=== PATIENT | female | born 1990 | race Two or more races ===

== ENCOUNTER 2024-07-20 13:35 | Inpatient (IN) | payer MEDICAID, OTHER ==
[~2024-07-20] VITALS: Ht 165.1 cm; Wt 88.8 kg
--- NOTE | 2024-07-20 13:41 | ED.PDOC ---
History of Present Illness HPI Comments 34 year old female VIVEK presents to the ED with chief complaint of chest pain/hypotension. Patient reports that after she had donated plasma earlier today, she begun to experience 10/10 chest pain with associated body pain, nausea, and vomiting. EMS relays that on scene the patient was hypotensive. Patient denies any SOB, dizziness, fever, chills, headache, or abdominal pain. Time Seen by MD: 13:38 Reviewed Notes: Nurses Notes, Balance Wheel Screw Hole Tapper Notes, Medications, Allergies Allergies: Coded Allergies: NO KNOWN ALLERGIES (Unverified , 07/20/24) Information Source: Patient, Emergency Med Personnel Mode of Arrival: EMS Severity: Moderate Timing: Hours Duration: Since onset Prehospital treatment: None Past Medical History PAST MEDICAL HISTORY: Denies Surgical History: Denies all surgeries COSTUME TECHNICIAN History: No Pertinent COSTUME TECHNICIAN History Family History Family History: Reviewed,noncontributory to illness Social History Smoker: Non-Smoker Alcohol: Denies ETOH Use Drugs: Denies Drug Use Lives In: Home Constitutional: reports: malaise; denies: chills, diaphoresis, fatigue, fever, sweats, weakness, others EENTM: denies: blurred vision, double vision, ear bleeding, ear discharge, ear drainage, ear pain, ear ringing, eye pain, eye redness, hearing loss, mouth pain, mouth swelling, nasal discharge, nose bleeding, nose congestion, nose pain, photophobia, tearing, throat pain, throat swelling, voice changes, others Respiratory: denies: cough, hemoptysis, orthopnea, SOB at rest, shortness of breath, SOB with excertion, stridor, wheezing, others Cardiovascular: reports: chest pain; denies: dizzy spells, diaphoresis, Dyspnea on exertion, edema, irregular heart beat, left arm pain, lightheadedness, palpitations, PND, syncope, others Gastrointestinal: reports: nausea, vomiting; denies: abdomen distended, abdominal pain, blood streaked bowels, constipated, diarrhea, dysphagia, d ifficulty swallowing, hematemesis, melena, poor appetite, poor fluid intake, rectal bleeding, rectal pain, others Genitourinary: denies: abnormal vagina bleeding, burning, dyspareunia, dysuria, flank pain, frequency, hematuria, incontinence, pain, , vagina discharge, urgency, others Neurological: denies: dizziness, fainting, headache, left sided numbness, left sided weakness, numbness, paresthesia, pre-existing deficit, right sided numbness, right sided weakness, seizure, speech problems, tingling, tremors, weakness, others Musculoskeletal: denies: back pain, gout, joint pain, joint swelling, muscle pain, muscle stiffness, neck pain, others Integumetry: denies: bruises, change in color, change in hair/nails, dryness, laceration, lesions, lumps, rash, wounds, others Allergic/Immunocompromised: denies: Difficulty Healing, Frequent Infections, Hives, Itching, others Hematologic/Lymphatic: denies: anemia, blood clots, easy bleeding, easy bruising, swollen glands, others Endocrine: denies: excessive hunger, excessive sweating, excessive thirst, excessive urination, flushing, intolerance to cold, intolerance to heat, unexplained weight gain, unexplained weight loss, others Psychiatric: denies: anxiety, bipolar disorder, depression, hopeless, panic disorder, schizophrenia, sleepless, suicidal, others All Other Systems: Reviewed and Negative Physical Exam General Appearance: Normal, Severe Distress HEENT: Normal ENT Inspection, PERRL/EOMI Neck: Full Range of Motion, Non-Tender, Normal, Normal Inspection Respiratory: Chest Non-Tender, Lungs Clear, No Accessory Muscle Use, No Respiratory Distress, Normal Breath Sounds Cardiovascular: No Edema, No JVD, No Murmur, No Gallop, Normal Peripheral Pulses, Tachycardia Breast Exam: Deferred Gastrointestinal: No Organomegaly, Non Tender, No Pulsatile Mass, Normal Bowel Sounds, Soft Genitalia: Deferred Pelvic: Deferred Rectal: Deferred Extremities: No calf tenderness, Normal capillary refill, Normal inspection, Normal range of motion, Non-tender, No pedal edema Musculoskeletal : Apperance: Normal Neurologic: Alert, elementary educator II-XII nml as Tested, No Motor Deficits, Normal Affect, Normal Mood, No Sensory Deficits Cerebellar Function: Normal Reflexes: Normal Skin: Dry, Normal Color, Warm Lymphatic: No Adenopathy Was a procedure done? Was a procedure done?: No EKG EKG : Pulse Rate (adult): 58 [place]: Normal Cardiac Rhythm: NSR Block: None Hypertrophy: None ST: Normal Comments Early repolarization Differential Dx Considerations may include: Electrolyte abnormalities, allergic reaction, ACS, fluid shift syndrome X-Ray, Labs, Meds, VS Vital Signs Date Time Temp Pulse Resp B/P (MAP) Pulse Ox O2 Delivery O2 Flow Rate FiO2 07/20/24 16:00 77 16 112/49 (70) 97 07/20/24 15:15 71 13 97/50 (66) 98 07/20/24 14:00 61 20 100 Room Air* 0 21 07/20/24 14:00 62 12 85/60 (68) 100 07/20/24 13:49 58 07/20/24 13:47 58 07/20/24 13:35 97.7 74 20 63/38 (46) 99 Lab Test 07/20/24 16:05 07/20/24 15:41 07/20/24 15:00 07/20/24 13:50 Range/Units Troponin I High Sensitivity 5 5 4 </=34 ng/L Urine Color Colorless Yellow Urine Clarity Clear Clear Urine pH 7.0 5.0-9.0 Urine Specific Page 1.006 1.001-1.035 Urine Protein Negative Negative Urine Ketones Negative Negative Urine Blood 2+ H Negative /uL Urine Nitrite Negative Negative Urine Bilirubin Negative Negative Urine Urobilinogen Normal Negative mg/dL Urine Leukocyte Esterase Trace Negative /uL Urine RBC 2 0 - 4 /hpf Urine WBC 2 0 - 5 /hpf Urine Squamous Epithelial Cells Few <5 /hpf Urine Amorphous Crystals Few None Seen /hpf Urine Bacteria Few H None Seen /hpf Urine Glucose Normal Normal mg/dL Sodium Level 141 136-145 mmol/L Potassium Level 3.8 3.5-5.1 mmol/L Chloride Level 110 H 98-107 mmol/L Carbon Dioxide Level 24 20-31 mmol/L Anion Gap 7 5-15 Blood Urea Nitrogen 6 L 9-23 mg/dL Creatinine 0.62 0.550-1.02 mg/dL Glomerular Filtration Rate Calc 119 >90 mL/min BUN/Creatinine Ratio 9.7 L 10.0-20.0 Serum Glucose 115 H 74-106 mg/dL Calcium Level 7.0 L 8.7-10.4 mg/dL Total Bilirubin 0.4 0.2-1.0 mg/dL Aspartate Amino Transferase (AST) 11 L 13-40 U/L Alanine Aminotransferase (ALT) 12 7-40 U/L Alkaline Phosphatase 51 46-116 U/L Total Protein 5.2 L 5.7-8.2 g/dL Albumin 3.2 3.2-4.8 g/dL Lipase 42 12-53 U/L White Blood Count 10.2 4.4-10.8 10^3/uL Red Blood Count 5.01 4.0-5.20 10^6/uL Hemoglobin 15.4 12.2-16.2 g/dL Hematocrit 46.7 H 36.0-46.0 % Mean Corpuscular Volume 93.1 80.0-100.0 fL Mean Corpuscular Hemoglobin 30.7 28.0-32.0 pg Mean Corpuscular Hemoglobin Concent 33.0 32.0-36.0 g/dL Red Cell Distribution Width 14.1 11.8-14.3 % Platelet Count 399 140-450 10^3/uL Mean Platelet Volume 8.4 6.9-10.8 fL Neutrophils (%) (Auto) 50.5 37.0-80.0 % Lymphocytes (%) (Auto) 38.1 10.0-50.0 % Monocytes (%) (Auto) 9.0 0.0-12.0 % Eosinophils (%) (Auto) 2.0 0.0-7.0 % Basophils (%) (Auto) 0.4 0.0-2.0 % Neutrophils # (Auto) 5.2 1.6-8.6 10 ^3/uL Lymphocytes # (Auto) 3.9 0.4-5.4 10 ^3/uL Monocytes # (Auto) 0.9 0-1.3 10 ^3/uL Eosinophils # (Auto) 0.2 0-0.8 10 ^3/uL Basophils # (Auto) 0 0-0.2 10 ^3/uL Nucleated Red Blood Cells 0.1 % B-Type Natriuretic Peptide 18.66 0-100 pg/mL Beta HCG, Quantitative 0.3 L 1.5-4.2 mIU/mL Current Medications Medications (Trade) Dose Ordered Sig/Yemi Route Start Time Stop Time Status Last Admin Sodium Chloride 1,000 ml @ 1,000 mls/hr Q1H ONCE IV 07/20/24 13:45 07/20/24 14:44 DC 07/20/24 14:06 Sodium Chloride 2,000 ml @ 1,000 mls/hr Q2H ONCE IV 07/20/24 14:30 07/20/24 16:29 DC 07/20/24 14:27 Chest XR: FINDINGS: Lines and Tubes: None Lungs: No focal consolidation. Pleura: No effusion. No pneumothorax. Cardiomediastinal contours: Unremarkable Bones: No acute osseous abnormality. IMPRESSION: No acute cardiopulmonary disease. Images Reviewed?: Images reviewed and evaluated by me Time of 1ST Reevaluation: 14:38 Reevaluation 1ST: Unchanged Patient Education/Counseling: Diagnosis, Treatment Family Education/Counseling: No Family Present Departure 1 Departure Time of Disposition: 18:23 (Patient presented with chest pain that was concerning for possible STEMI, ACS, PE, Pneumonia, Muscle Strain, COPD, Dissection. Data: 1. I ordered and reviewed the result of at least 3 labs including a CBC, BMP, and Troponin. 2. I independently interpreted the following tests: EKG which shows sinus arrhythmia and Chest X-ray which shows benign chest.Risk:This patient has a high risk of morbidity due to further diagnostic testing or treatment and may suffer from an acute cardiac or respiratory disorder. Workup reveals concern for ACS and patient should be admitted for further workup and possible expert consultation. ) Impression: Primary Impression: Acute chest pain Additional Impression: Hypotension Qualified Codes: I95.9 - Hypotension, unspecified Disposition: 09 ADMITTED INPATIENT Admit to: Med Surg Condition: Guarded Critical Care Note Critical Care Time?: Yes Critical care comment: Acute chest pain Authorized and Performed by: Dorys Wheeler MD Total critical care time: Approximately 44 minutes Due to a high probability of clinically significant, life threatening deterioration, the patient required my highest level of preparedness to intervene emergently and I personally spent this critical care time directly and personally managing the patient. This critical care time included obtaining a history; examining the patient; pulse oximetry; ordering and review of studies; arranging urgent treatment with development of a management plan; evaluation of patient's response to treatment; frequent reassessment; and, discussions with other providers. This critical care time was performed to assess and manage the high probability of imminent, life-threatening deterioration that could result in multi-organ failure. It was exclusive of separately billable procedures and treating other patients and teaching time. Please see my other sections and the rest of the note for further information on patient assessment and treatment. Stability Stability form required: No Heart Score Heart Score: Heart Score Response (Comments) Value History N/A 0 EKG N/A 0 Age N/A 0 Risk Factors N/A 0 Troponin N/A 0 Total 0 I personally scribed for DORYS WHEELER MD ([email or web address]) on 07/20/24 at 13:41. Electronically submitted by Dar Boothe ([email or web address]). I personally scribed for DORYS WHEELER MD ([email or web address]) on 07/20/24 at 13:49. Electronically submitted by Dar Boothe ([email or web address]). I personally scribed for DORYS WHEELER MD ([email or web address]) on 07/20/24 at 14:24. Electronically submitted by Dar Boothe ([email or web address]). DORYS WHEELER MD Jul 20, 2024 13:41
[2024-07-20] MEDS: ONDANSETRON HCL 4 MG/2 ML VIAL IV ONE (13:45)
[2024-07-20] MEDS: MORPHINE SULFATE 4 MG/ML SYR/VIAL IV ONE (13:45)
[2024-07-20 14:00] VITALS: PULSE 61; RESP 20; O2SAT 100
[2024-07-20] MEDS: SODIUM CHLORIDE 0.9% 1,000 ML IV ONE ×2 (14:06→19:06)
[2024-07-20 14:09] LABS: Basophils # (auto) 0 10 ^3/uL (0-0.2); Basophils % (auto) 0.4 % (0.0-2.0); Eosinophils # (auto) 0.2 10 ^3/uL (0-0.8); Hematocrit 46.7 % (36.0-46.0); Hemoglobin 15.4 g/dL (12.2-16.2); Lymphocytes # (auto) 3.9 10 ^3/uL (0.4-5.4); Lymphocytes % (auto) 38.1 % (10.0-50.0); Mean Corpuscular Hemoglobin 30.7 pg (28.0-32.0); Mean Corpuscular Volume 93.1 fL (80.0-100.0); Monocytes # (auto) 0.9 10 ^3/uL (0-1.3); Neutrophils # (auto) 5.2 10 ^3/uL (1.6-8.6); Neutrophils % (auto) 50.5 % (37.0-80.0); Nucleated Red Blood Cells % 0.1 %; Platelet Count (auto) 399 10^3/uL (140-450); Red Blood Cells 5.01 10^6/uL (4.0-5.20); Red Cell Distribution Width 14.1 % (11.8-14.3); White Blood Cell 10.2 10^3/uL (4.4-10.8)
--- NOTE | 2024-07-20 14:15 | DVH ---
CHEST RADIOGRAPH Indication:chest pain Technique: Single frontal view of the chest was obtained Comparison: None FINDINGS: Lines and Tubes: None Lungs: No focal consolidation. Pleura: No effusion. No pneumothorax. Cardiomediastinal contours: Unremarkable Bones: No acute osseous abnormality. IMPRESSION: No acute cardiopulmonary disease.
[2024-07-20] MEDS: SODIUM CHLORIDE 0.9% 2,000 ML IV ONE (14:27)
[2024-07-20 15:48] LABS: Alanine Aminotransferase 12 U/L (7-40); Albumin 3.2 g/dL (3.2-4.8); Alkaline Phosphatase 51 U/L (46-116); Anion Gap 7 (5-15); Aspartate Aminotransferase 11 U/L (13-40); BUN/Creatinine Ratio 9.7 (10.0-20.0); Bilirubin, Total 0.4 mg/dL (0.2-1.0); Blood Urea Nitrogen 6 mg/dL (9-23); Carbon Dioxide 24 mmol/L (20-31); Chloride 110 mmol/L (98-107); Glucose 115 mg/dL (74-106); Lipase 42 U/L (12-53); Potassium 3.8 mmol/L (3.5-5.1); Sodium 141 mmol/L (136-145); Total Protein 5.2 g/dL (5.7-8.2)
[2024-07-20 16:12] LABS: Urine Amorphous Crystal FEW /hpf (None Seen); Urine Bacteria FEW /hpf (None Seen); Urine Blood 2+ /uL (Negative); Urine Clarity Clear (Clear); Urine Color Colorless (Yellow); Urine Protein, UAD Negative (Negative); Urine Specific Gravity 1.006 (1.001-1.035); Urine Urobilinogen Normal (Negative); Urine WBC 2 /hpf (0 - 5)
[2024-07-20 19:20] VITALS: PULSE 50; RESP 18; O2SAT 100
[2024-07-20] MEDS ORDERED: ONDANSETRON HCL 4 MG/2 ML VIAL IV PRN (21:45)
[2024-07-20] MEDS: SODIUM CHLORIDE 0.9% 1,000 ML IV SCH (21:45)
[2024-07-20] MEDS ORDERED: MORPHINE SULFATE INJ 2 MG/ml SYRG IV PRN (21:45)
[2024-07-20] MEDS ORDERED: ACETAMINOPHEN 325 MG TAB PO PRN (21:45)
[2024-07-20] MEDS ORDERED: NITROGLYCERIN 0.4 MG SL TAB SL PRN (21:45)
[2024-07-20] MEDS ORDERED: HYDROcodone-ACET 5/325MG TAB PO PRN (21:45)
--- NOTE | 2024-07-20 22:13 | DVHHPRES ---
History of Present Illness Resident Creating Document: CONCHITA REES RESIDENT History of Present Illness This is a 34 years old female with no significant past medical history presented to the ED via EMS with a complaint of dizziness and fainting. Patient reports that after she had donated plasma earlier today, she began to experience numbness in the lips , heaviness in the lower parts of the body , blackout and lost consciousness. This is the 3rd time she donated plasma and she used to have numbness in the lips after donation and it is the 1st time she have this kind of symptoms. She also mentioned nausea and vomiting but denies any incontinence or confusion after regained consciousness. EMS relays that on scene the patient was hypotensive. Patient denies any SOB, dizziness, fever, chills, headache, or abdominal pain. Past Medical History None Past Surgical History: None Family History: None Smoke: No ALCOHOL: none Drugs: None Lives: with Family Review of Systems Constitutional: No: Fever, Chills, Sweats, Weakness, Malaise, Other Eyes: No: Pain, Vision change, Conjunctivae inflammation, Eyelid inflammation, Other, Redness ENT: No: Ear pain, Ear discharge, Nose pain, Nose discharge, Nose congestion, Mouth pain, Mouth swelling, Throat pain, Throat swelling, Other Respiratory: No: Cough, Dry, Shortness of breath, SOB with excertion, Wheezing, Hemoptysis, Pleuritic Pain, Sputum, Wheezing, Other Cardiovascular: Lt Headedness; No: Chest Pain, Palpitations, Orthopnea, Paroxysmal Noc. Dyspnea, Edema, Other Gastrointestinal: Nausea, Vomiting; No: Abdominal Pain, Diarrhea, Constipation, Melena, Hematochezia, Other Genitourinary: No Dysuria, No Frequency, No Incontinence, No Hematuria, No Retention, No Other Musculoskeletal: No: other, neck pain, shoulder pain, arm pain, back pain, hand pain, leg pain, foot pain Skin: No: Rash, Lesions, Jaundice, Bruising, Other Neurological: No: Weakness, Numbness, Incoordination, Change in speech, Confusion, Seizures, Other Allergies: Coded Allergies: NO KNOWN ALLERGIES (Unverified , 07/20/24) Medications Current Medications Medications Dose Ordered Sig/Yemi Route Start Time Stop Time Status Last Admin Dose Admin Sodium Chloride 1,000 ml @ 75 mls/hr [id number] IV 07/20/24 21:45 Acetaminophen 325 mg Q4HP PRN PO 07/20/24 21:45 Acetaminophen/ Hydrocodone Bitart 1 tab Q4HP PRN PO 07/20/24 21:45 Ondansetron HCl 4 mg Q4HP PRN IV 07/20/24 21:45 Nitroglycerin 0.4 mg Q5MINP PRN SL 07/20/24 21:45 Morphine Sulfate 2 mg Q30M PRN IV 07/20/24 21:45 Exam Vital Signs Vital Signs Date Time Temp Pulse Resp B/P (MAP) Pulse Ox O2 Delivery O2 Flow Rate FiO2 07/20/24 20:00 51 07/20/24 19:04 8 91/51 (64) 98 07/20/24 14:00 Room Air* 0 21 07/20/24 13:35 97.7 General Appearance: Alert, Oriented X3, Cooperative, mild distress HEENT: Atraumatic, PERRLA, EOMI, Mucous membr. moist/pink Respiratory: Clear to auscultation, Normal air movement Cardiovascular: Regular rate, Normal S1, Normal S2, No murmurs Abdominal: Normal bowel sounds, Soft, No tenderness, No hepatospenomegaly, No masses Extremities: No clubbing, No cyanosis, No edema, Normal pulses, No tenderness/swelling Skin: No rashes, No breakdown, No significant lesion Neuro: Normal gait, Normal speech, Strength at 5/5 X4 ext, Normal tone, Sensation intact Psych/Mental Status: Mental status NL, Mood NL Labs/Xrays Labs Test 07/20/24 16:05 07/20/24 15:41 07/20/24 15:00 07/20/24 13:50 Range/Units Troponin I High Sensitivity 5 </=34 ng/L Urine Color Colorless Yellow Urine Clarity Clear Clear Urine pH 7.0 5.0-9.0 Urine Specific [place] 1.006 1.001-1.035 Urine Protein Negative Negative Urine Ketones Negative Negative Urine Blood 2+ H Negative /uL Urine Nitrite Negative Negative Urine Bilirubin Negative Negative Urine Urobilinogen Normal Negative mg/dL Urine Leukocyte Esterase Trace Negative /uL Urine RBC 2 0 - 4 /hpf Urine WBC 2 0 - 5 /hpf Urine Squamous Epithelial Cells Few <5 /hpf Urine Amorphous Crystals Few None Seen /hpf Urine Bacteria Few H None Seen /hpf Urine Glucose Normal Normal mg/dL Sodium Level 141 136-145 mmol/L Potassium Level 3.8 3.5-5.1 mmol/L Chloride Level 110 H 98-107 mmol/L Carbon Dioxide Level 24 20-31 mmol/L Anion Gap 7 5-15 Blood Urea Nitrogen 6 L 9-23 mg/dL Creatinine 0.62 0.550-1.02 mg/dL Glomerular Filtration Rate Calc 119 >90 mL/min BUN/Creatinine Ratio 9.7 L 10.0-20.0 Serum Glucose 115 H 74-106 mg/dL Calcium Level 7.0 L 8.7-10.4 mg/dL Total Bilirubin 0.4 0.2-1.0 mg/dL Aspartate Amino Transferase (AST) 11 L 13-40 U/L Alanine Aminotransferase (ALT) 12 7-40 U/L Alkaline Phosphatase 51 46-116 U/L Total Protein 5.2 L 5.7-8.2 g/dL Albumin 3.2 3.2-4.8 g/dL Lipase 42 12-53 U/L White Blood Count 10.2 4.4-10.8 10^3/uL Red Blood Count 5.01 4.0-5.20 10^6/uL Hemoglobin 15.4 12.2-16.2 g/dL Hematocrit 46.7 H 36.0-46.0 % Mean Corpuscular Volume 93.1 80.0-100.0 fL Mean Corpuscular Hemoglobin 30.7 28.0-32.0 pg Mean Corpuscular Hemoglobin Concent 33.0 32.0-36.0 g/dL Red Cell Distribution Width 14.1 11.8-14.3 % Platelet Count 399 140-450 10^3/uL Mean Platelet Volume 8.4 6.9-10.8 fL Neutrophils (%) (Auto) 50.5 37.0-80.0 % Lymphocytes (%) (Auto) 38.1 10.0-50.0 % Monocytes (%) (Auto) 9.0 0.0-12.0 % Eosinophils (%) (Auto) 2.0 0.0-7.0 % Basophils (%) (Auto) 0.4 0.0-2.0 % Neutrophils # (Auto) 5.2 1.6-8.6 10 ^3/uL Lymphocytes # (Auto) 3.9 0.4-5.4 10 ^3/uL Monocytes # (Auto) 0.9 0-1.3 10 ^3/uL Eosinophils # (Auto) 0.2 0-0.8 10 ^3/uL Basophils # (Auto) 0 0-0.2 10 ^3/uL Nucleated Red Blood Cells 0.1 % B-Type Natriuretic Peptide 18.66 0-100 pg/mL Beta HCG, Quantitative 0.3 L 1.5-4.2 mIU/mL Assessment/Plan Assessment/Plan Assessment and plan: # Near syncopal event likely due to hypotension - Admitted the patient in telemetry - On admission blood pressure was 63/38 - IV normal saline at 100 mL/hour - Initial EKG and troponins were unremarkable - Chest xray revealed no acute cardiopulmonary disease - Ordered Echo. # Possible vasovagal syncope due to dehydration. # Vitamin-D deficiency - Vitamin-D 07365 units Q 7D Goal of care discussed with the patient for more than 17 minutes full code Plan of treatment discussed with Dr. Ashton Plan discussed with: Patient, Other My Orders Orders - CONCHITA REES RESIDENT Procedure Category Date Status Time Admit ADMIT 07/20/24 Transmitted 21:31 Allergies ANAT 07/20/24 In Process 21:31 Code Status CODE 07/20/24 Transmitted 21:31 Sodium Chloride 0.9% PHA 07/20/24 In Process 21:45 Oxygen Per Hour RT 07/20/24 Transmitted 21:31 Acetaminophen Tablet PHA 07/20/24 In Process (Tylenol Tablet) 21:45 Hydrocodone-Acet PHA 07/20/24 In Process 5/325mg Tab (Steele 21:45 Ondansetron Hcl PHA 07/20/24 In Process (Zofran) 21:45 Complete Blood Count LAB 07/21/24 Verified 04:00 Comprehensive LAB 07/21/24 Verified Metabolic Panel 04:00 Echo 2d Mode Cardiac US 07/20/24 Logged DOP 21:31 Clear Liq Diet DIET 07/21/24 Transmitted Breakfast Nitroglycerin PHA 07/20/24 In Process Sublingual (Ntrostat 21:45 Morphine Sulfate PHA 07/20/24 In Process Injection 21:45 Oxygen By Nasal RT 07/20/24 Transmitted Cannula 21:31 Stat Ekg For Chest ANAT 07/20/24 In Process Pain 21:31 Notify Of Changes ANAT 07/20/24 In Process From Base 21:31 Folder Machine Adjuster For ANAT 07/20/24 In Process 24 Hours 21:31 Emergency Dysrhythmia [facility] 07/20/24 In Process Protocol 21:31 Rhythm Strips Once [facility] 07/20/24 In Process Every Shift 21:31 Date of Service: Jul 20, 2024 Billing Provider: WARD ASHTON MD Common Visit Codes: 13375-[id number] INP/OBS CARE (HIGH) CONCHITA REES RESIDENT Jul 20, 2024 22:13 WARD ASHTON MD Jul 21, 2024 09:00
[2024-07-21] MEDS: SODIUM CHLORIDE 0.9% 1,000 ML IV SCH (03:00)
[2024-07-21 04:41] LABS: Basophils # (auto) 0 10 ^3/uL (0-0.2); Basophils % (auto) 0.5 % (0.0-2.0); Eosinophils # (auto) 0.2 10 ^3/uL (0-0.8); Eosinophils % (auto) 2.5 % (0.0-7.0); Hematocrit 41.2 % (36.0-46.0); Hemoglobin 13.5 g/dL (12.2-16.2); Lymphocytes # (auto) 2.5 10 ^3/uL (0.4-5.4); Lymphocytes % (auto) 35.5 % (10.0-50.0); Mean Corpuscular Hemoglobin 30.7 pg (28.0-32.0); Mean Corpuscular Hgb Conc. 32.8 g/dL (32.0-36.0); Mean Corpuscular Volume 93.6 fL (80.0-100.0); Monocytes # (auto) 0.7 10 ^3/uL (0-1.3); Monocytes % (auto) 10.2 % (0.0-12.0); Neutrophils # (auto) 3.6 10 ^3/uL (1.6-8.6); Neutrophils % (auto) 51.3 % (37.0-80.0); Nucleated Red Blood Cells % 0.1 %; Platelet Count (auto) 310 10^3/uL (140-450); Red Blood Cells 4.41 10^6/uL (4.0-5.20); White Blood Cell 6.9 10^3/uL (4.4-10.8)
[2024-07-21 05:02] LABS: Alanine Aminotransferase 12 U/L (7-40); Albumin 3.2 g/dL (3.2-4.8); Alkaline Phosphatase 47 U/L (46-116); Anion Gap 7 (5-15); Aspartate Aminotransferase 12 U/L (13-40); Bilirubin, Total 0.5 mg/dL (0.2-1.0); Calcium 7.9 mg/dL (8.7-10.4); Carbon Dioxide 24 mmol/L (20-31); Chloride 113 mmol/L (98-107); Glucose 84 mg/dL (74-106); Potassium 3.4 mmol/L (3.5-5.1); Sodium 144 mmol/L (136-145); Total Protein 5.4 g/dL (5.7-8.2)
[2024-07-21 05:06] LABS: BUN/Creatinine Ratio 8.3 (10.0-20.0); Blood Urea Nitrogen < 5 mg/dL (9-23)
[2024-07-21] MEDS: SOD CHL 0.45% 1,000 ML IV SCH (05:45)
--- NOTE | 2024-07-21 05:52 | ECG ---
[facility] Test Date: 2024-07-20 Test Time: 13:47:33 Pat Name: DELFINO BARFIELD Department: ER Room: 0293T Gender: F Personal Fitness Manager: CARLITA : 1990 Requested By: DORYS JAMES Order Number: [id number] Reading MD: Yosef Bowers Measurements Intervals [place] Rate: 58 P: 30 DC: 59 QRS: -23 QRSD: 106 T: 64 QT: 440 QTc: 433 Interpretive Statements Sinus rhythm Atrial premature complex Short DC interval Borderline left axis deviation ST elev, probable normal early repol pattern Baseline wander in lead(s) V1,V3 Electronically Signed On 07-22-2024 14:55:04 PDT by Yosef Bowers Please click the below link to view image of tracing.
[2024-07-21] MEDS: POTASSIUM CHL 20 Meq TABLET PO ONE (06:28)
[2024-07-21] MEDS: ERGOCALCIFEROL 50,000 UNIT(1.25MG) CAP PO SCH (06:28)
[2024-07-21 07:40] VITALS: PULSE 48; RESP 18; O2SAT 97
[2024-07-21 08:51] LABS: Triglycerides 104 mg/dL (< 150)
[2024-07-21 08:52] LABS: LDL Cholesterol 67 mg/dL (< 100)
[2024-07-21 08:53] LABS: Cholesterol 114 mg/dL (< 200); HDL Cholesterol 36 mg/dL (40-59)
--- NOTE | 2024-07-21 13:08 | DVHSR ---
APPROVED REPORT EXAM: Two-dimensional and M-mode echocardiogram with Doppler and color Doppler. Blood Pressure: 99/50 mmHg INDICATION Syncope RISK FACTORS Height: 5'5", Weight: 180 DIMENSIONS LVDd4.7 (3.8-5.7cm)LA (2D)4.4 (1.9-4.0cm)Aortic Root2.5 (2.0-3.7cm) LVDs3.1 (2.5-4.0cm)LA (MM) (1.9-4.0cm)Aortic Cusp Exc1.8 (1.5-2.0cm) EF (%) 63.0 (55-70%)Rt. Atrium4.5 (1.9-4.0cm)Asc. Aorta2.7 cm IVSd0.8 (0.7-1.1cm)RV (D)3.8 (1.8-2.4cm) PWd0.5 (0.7-1.1cm) Mitral Valve MitralMitral Stenosis E wave1.03m/sMV Mean GR.mmHg A wave0.52m/sMV Peak GR.mmHg E/A ratio2.02D MVAcm2 DECEL [id number] 1/2 [place] Aortic Valve Aortic ValveAortic Stenosis V11.25m/[place] Mean GR.4mmHg V21.39m/[place] Peak GR.8mmHg LVOT Diameter1.8 (1.8-2.4cm)Doppler AVA2.29cm2 Pulmonic Valve V20.93m/s Other Information Quality : Technically LimitedRhythm : Technically limited study due to body habitus. Conclusion Normal left ventricular size and dimension. Normal left ventricular systolic function estimated ejec tion fraction 55%. There is a grade 1 diastolic dysfunction. Normal normal right ventricular size and dimension. Normal right ventricular systolic function. Normal biatrial size and dimension. Normal aortic valve structure function. Normal mitral valve structure and function. Normal tricuspid valve structure and function. The pulmonary valve is grossly normal. No pericardial effusion.
[2024-07-21] MEDS: LORazepam 2MG/ML-1ML VIAL IV ONE (14:50)
[2024-07-21] MEDS: LORazepam 2MG/ML-1ML VIAL ONE (15:03)
--- NOTE | 2024-07-21 15:31 | DVH ---
EXAM: CT HEAD WITHOUT CONTRAST HISTORY: SZR LIKE ACTIVITY COMPARISON: None TECHNIQUE: Axial images were obtained and reformatted in coronal and sagittal planes. All CT scans at this medical facility are performed using dose modulation techniques as appropriate t o a performed exam including the following: Automated exposure control was utilized; adjustment of th e MA and/or KV according to patient size; and use of iterative reconstruction technique. CT Dose: CTDI volume is 53.33 mGy. Dose-length product is 863.9 mGy*cm FINDINGS: There is no evidence of acute intracranial hemorrhage, mass, mass effect midline shift. There is no h ydrocephalus or extra-axial fluid collection. [place]-white matter differentiation is maintained.. The visualized paranasal sinuses and mastoid air cells are clear. The calvarium is intact. IMPRESSION: 1. No acute intracranial process. HS:Y
[2024-07-21 15:55] VITALS: PULSE 59; RESP 16; O2SAT 98
[2024-07-21] MEDS ORDERED: LORazepam 2MG/ML-1ML VIAL IV PRN ×2 (16:45→23:00)
[2024-07-21] MEDS: D5W/SOD CHLO 0.9% 1,000 ML IV SCH (17:00)
--- NOTE | 2024-07-21 17:55 | DVH ---
Carotid Duplex Date: 07/21/2024 05:06 PM Clinical History: Seizure/syncope Comparison: None Technique: Duplex Doppler evaluation of the extracranial carotid and vertebral arteries including color Doppler and spectral/pulsed waveform analysis was performed. Findings: RIGHT SIDE: The peak systolic velocities are 82 cm/s in the distal CCA and 87 cm/s in the proximal ICA.The ICA/CC A ratio is less than 2. The external carotid artery is patent with peak systolic velocity of 96 cm/s proximally. There is appropriate antegrade flow in the right vertebral artery. LEFT SIDE: The peak systolic velocities are 92 cm/s in the distal CCA and 198 cm/s in the proximal ICA.. The IC A/CCA ratio is 2.2. The external carotid artery is patent with peak systolic velocity of 83 cm/s proximally. There is appropriate antegrade flow in the left vertebral artery. IMPRESSION: No hemodynamically significant stenosis noted in the right carotid system. No hemodynamically significant stenosis noted in the left carotid system. Elevated velocities within the left ICA from tortuosity with mild atherosclerotic plaque noted on the grayscale. Reference:Radiology 2003; 229:340-346
--- NOTE | 2024-07-21 18:20 | DVHPNRES ---
Progress Note Date Seen: Jul 21, 2024 Resident Creating Document: HAYLIE DESAI RESIDENT Medical Necessity Reason Pt with a Central, PICC or Fol: No Subjective Review of Systems This is a 34 years old female with no significant past medical history presented to the ED via EMS with a complaint of dizziness and fainting. Patient reports that after she had donated plasma earlier today, she began to experience numbness in the lips , heaviness in the lower parts of the body , blackout and lost consciousness. As per patient's patient's colleagues weakness patient having seizure 2 times. This is the 3rd time she donated plasma and she used to have numbness in the lips after donation and it is the 1st time she have this kind of symptoms. She also mentioned nausea and vomiting but denies any incontinence or confusion after regained consciousness. EMS relays that on scene the patient was hypotensive. Patient denies any SOB, dizziness, fever, chills, headache, or abdominal pain. Initial lab workup revealed mild hypokalemia, potassium 3.4, EKG sinus rhythm, later on patient developed sinus bradycardia at times, sent by acute cardiopulmonary process noted, CT head negative for acute intracranial hemorrhage, infarction, tumor. Carotid Doppler revealed-No hemodynamically significant stenosis noted in the right or left carotid system. PMH-none PSH- none Allergy- NKDA Personal History/ Social History- 69, denies alcoholism/smoking/drug abuse. Patient was seen today at the bedside. Patient reports feeling better. Cardiovascular- deny acute chest pain or shortness of breath or cough or palpitation Respiratory- denies cough or short of breath or wheezing Gastrointestinal- denies any rectal bleeding, nausea or vomiting Musculoskeletal-denies acute joint swelling or tenderness or redness Neurological- denies acute dysarthria, dysphagia, change in vision Psychiatry- denies depression or SI or HI Skin- denies acute rash or purpura Patient was seen today for clinical evaluation. Labs and chart reviewed. In the evening patient describes having seizure-like activity, but as per decision is questionable of the atrial seizure or nonepileptic seizure/psychogenic seizure. Patient was seen by Neurology, recommendation reviewed and appreciated, neurology recommended EEG and brain MRI. Patient on telemetry, patient was kept on NPO to avoid any seizure-related aspiration. Patient is put on IV fluid. Echo revealed LVEF 55%. Ordered cardiology consult for sinus bradycardia with a hypotension for further evaluation and care of the patient. Objective vital signs Vital Sign Date Time Temp Pulse Resp B/P (MAP) Pulse Ox O2 Delivery O2 Flow Rate FiO2 07/21/24 15:55 59 16 98 Room Air* 0 21 07/21/24 15:20 99/55 (70) 07/20/24 21:30 97.7 97.7 Total Intake and Output 07/20/24 07/20/24 07/21/24 15:00 23:00 07:00 Intake Total 4075 ml 375 ml Balance 4075 ml 375 ml medications Current Medications Medications Dose Ordered Sig/Yemi Route Start Time Stop Time Status Last Admin Dose Admin Acetaminophen 325 mg Q4HP PRN PO 07/20/24 21:45 Acetaminophen/ Hydrocodone Bitart 1 tab Q4HP PRN PO 07/20/24 21:45 Ondansetron HCl 4 mg Q4HP PRN IV 07/20/24 21:45 Nitroglycerin 0.4 mg Q5MINP PRN SL 07/20/24 21:45 Morphine Sulfate 2 mg Q30M PRN IV 07/20/24 21:45 Ergocalciferol 50,000 unit Q7D PO 07/21/24 05:45 07/21/24 06:28 50,000 UNIT Sodium Chloride 1,000 ml @ 100 mls/hr Q10H IV 07/21/24 05:45 07/21/24 16:36 100 MLS/HR Lorazepam 1 mg Q5MINP PRN IV 07/21/24 16:45 Dextrose/Sodium Chloride 1,000 ml @ 125 mls/hr Q8H IV 07/21/24 17:00 07/21/24 17:00 125 MLS/HR Examination General examination- awake, alert, oriented, cooperative HEENT- PEERLA, no acute nasal discharge Cardiovascular- S1-S2 audible, rate and rhythm regular, no murmur Respiratory- CTAB, no wheeze or rhonchi Gastrointestinal-nontender, bowel sound+. Nondistended Musculoskeletal-no acute joint swelling or tenderness or redness# Lower extremity- no leg edema Neurological- cranial nerves intact, no acute dysarthria or dysphagia Psychiatry- denies depression or SI or HI Skin- no acute rash or purpura laboratory and microbiology Laboratory Tests 07/21/24 03:51 Test 07/21/24 03:51 Range/Units Serum Glucose 84 74-106 mg/dL Problem List/Assessment/Plan Problem List/Assessment/Plan Acute syncopal episode likely due to seizure/vasovagal syncope/hypotension/orthostatic hypotension/cardiac arrhythmia -telemetry patient on sinus rhythm -CXR- no acute cardiopulmonary process noted, -CT head negative for acute intracranial hemorrhage, infarction -Carotid Doppler revealed-No hemodynamically significant stenosis noted in the right or left carotid system. -echo 2D revealed LVEF 55%, negative for aortic stenosis/valvular abnormality -continue telemetry -on seizure precaution -lorazepam p.r.n. as prescribed -psychiatric consult reviewed and appreciated -ordered cardiology consult for further evaluation and care #Hypotension likely due to post plasma donation -continue IV fluid as prescribed -monitor BP #Sinus bradycardia under evaluation -telemetry patient on sinus rhythm -CXR- no acute cardiopulmonary process noted, -CT head negative for acute intracranial hemorrhage, infarction -Carotid Doppler revealed-No hemodynamically significant stenosis noted in the right or left carotid system. -cardiology recommendation reviewed and appreciated -continue telemetry -on seizure precaution -lorazepam p.r.n. as prescribed # mild hypokalemia-replenished -monitor BMP # vitamin-D deficiency -continue with ergo-cholecalciferol as prescribed -ordered parathyroid hormone level Goals of care/advance care planning; FULL CODE; discussed with the patient PUD prophylaxis: Not needed DVT prophylaxis: And ambulating and also having seizure Plan discussed with Dr. Rossi,,, nursing staff, patient Total time spent on patient evaluation, chart review, assessment and plan, discussion discussion >30 minutes Plan discussed with: Patient Plan discussed with: Patient, Other (RN) My Orders My Orders Orders - HAYLIE DESAI RESIDENT Procedure Category Date Status Time Orthostatic Vital ORDERS 07/21/24 Transmitted Signs 13:51 Hepatitis B Surface LAB 07/21/24 In Process Antigen 16:17 Hepatitis C Antibody LAB 07/21/24 In Process 16:17 Seizure Precautions ED NURSING 07/21/24 Transmitted Lorazepam 2mg/Ml Inj PHA 07/21/24 In Process (Ativan Inj) 16:45 * Neurology Consult CONS 07/21/24 Transmitted 16:46 Eeg Awake/Sleep/Act EEG 07/21/24 Transmitted 16:46 Carotid Duplx W Color US 07/21/24 Resulted DOP 16:46 Geometrician ORDERS 07/21/24 Transmitted 16:46 Npo Except For ANAT 07/21/24 In Process Medications 16:46 D5w/Sod Chlo 0.9% PHA 07/21/24 In Process (D5w Ns 0.9%) 17:00 * Cardiology Consult CONS 07/21/24 Transmitted 17:07 Date of Service: Jul 21, 2024 Billing Provider: YOHANA ROSSI MD Common Visit Codes: [id number] INP/OBS CARE(HIGH) HAYLIE DESAI RESIDENT Jul 21, 2024 18:20 YOHANA ROSSI MD Jul 23, 2024 20:16
[2024-07-21] MEDS: SODIUM CHLORIDE 0.9% 500 ML IV STA (18:21)
[2024-07-21 20:00] VITALS: PULSE 83; RESP 19; O2SAT 100
[2024-07-21 20:21] LABS: Alanine Aminotransferase 13 U/L (7-40); Albumin 3.6 g/dL (3.2-4.8); Alkaline Phosphatase 51 U/L (46-116); Anion Gap 6 (5-15); Aspartate Aminotransferase 12 U/L (13-40); Bilirubin, Total 0.5 mg/dL (0.2-1.0); Calcium 8.5 mg/dL (8.7-10.4); Carbon Dioxide 26 mmol/L (20-31); Chloride 110 mmol/L (98-107); Glucose 125 mg/dL (74-106); Potassium 3.6 mmol/L (3.5-5.1); Sodium 142 mmol/L (136-145)
[2024-07-21 20:22] LABS: Total Protein 6.1 g/dL (5.7-8.2)
[2024-07-21 20:29] LABS: BUN/Creatinine Ratio 7.6 (10.0-20.0); Blood Urea Nitrogen < 5 mg/dL (9-23)
[2024-07-21 21:00] VITALS: BP 87/45; PULSE 47; RESP 19; TEMP 98; O2SAT 98
[2024-07-21 21:45] VITALS: BP 104/62; PULSE 57; RESP 18; TEMP 97.8; O2SAT 100
--- NOTE | 2024-07-21 22:32 | DVHINCON2 ---
Date of service: Jul 21, [address] Acevedo Reason for Consultation History of syncope and seizure History of Present Illness Ms. Tang is a 34 years old right-handed female denies major medical history, she came to the hospital on 07/20/2024 with a chief complaint of seizure activity. At that time, she is alert and fully oriented, she provided the following history On 07/20/2024, when she was standing at her work place, she developed numbness in bilateral face, dizziness/lightheadedness, and she felt everything was moving away from her, which was followed by fully done and shaking all over body with company amnesia, she woke up after the 1st event, and she had vomiting, and then she had another similar event after EMS was there. When she was in the ambulance, she had one event where she had numbness in the face, spasm her whole-body (arms, legs, torso), but without altered mental status. She was had chest pain. In the emergency room, she was said to have a partial seizure, and she remembers the event in that she was numbness in bilateral face, which spread to her body, and she was had chest pain, heaviness in whole-body, cramping in the arms and the legs, which was not associated with altered mental status, and she was able to communicated with her nurse during this event. The patient was denies incontinence or biting in any of above described event She was never had similar problem before, she denies history of seizure or brain disease Urinalysis, 07/20/2024: WBC: 2, urine leukocyte esterase: Trace CBC, 07/21/2024: Unremarkable CMP, 07/21/2024: Unremarkable HGB A1c, 07/21/2020 4:4.9 TG/HDL/LDL/HDL, 06/2024: 104/113/67/36 Vitamin B12, 07/21/2024: 1106 Carotid Doppler, 07/21/2024: No hemodynamically significant stenosis noted in the right carotid system. No hemodynamically significant stenosis noted in the left carotid system. Elevated velocities within the left ICA from tortuosity with mild atherosclerotic plaque noted on the grayscale CT head, 07/21/2024: No acute intracranial process Past Medical History None Past Surgical History None Family History: Diabetes mellitus G8 MOTHER FH: heart attack G8 MOTHER FH: seizures G8 FATHER Hypertension G8 FATHER Hypotension G8 MOTHER Family History Hypertension, diabetes, coronary artery disease, heart attack, father has seizure secondary to head trauma Social History She is non-smoker, she denies a history of alcohol or recreational substances abuse Allergies: Coded Allergies: NO KNOWN ALLERGIES (Unverified , 07/20/24) Home Meds No Active Prescriptions or Reported Meds Current Medications Current Medications Medications (Trade) Dose Ordered Sig/Yemi Route PRN Reason Start Time Stop Time Status Last Admin Sodium Chloride 1,000 ml @ 100 mls/hr Q10H IV 07/21/24 03:00 07/21/24 05:43 DC 07/21/24 03:00 Ergocalciferol (Vitamin D 50,000 Unit) 50,000 unit Q7D PO 07/21/24 05:45 07/21/24 06:28 Sodium Chloride 1,000 ml @ 100 mls/hr Q10H IV 07/21/24 05:45 07/21/24 18:28 DC 07/21/24 16:36 Lorazepam (Ativan Inj) 1 mg Q5MINP PRN IV SEIZURES 07/21/24 16:45 Dextrose/Sodium Chloride 1,000 ml @ 125 mls/hr Q8H IV 07/21/24 17:00 07/21/24 17:00 Sodium Chloride 500 ml @ 500 mls/hr Q1H STAT IV 07/21/24 18:21 07/21/24 19:20 DC 07/21/24 18:21 Review of Systems As above, the other systems are negative Vital Signs Vital Signs Date Time Temp Pulse Resp B/P (MAP) Pulse Ox O2 Delivery O2 Flow Rate FiO2 07/21/24 15:55 59 16 98 Room Air* 0 21 07/21/24 15:20 99/55 (70) 07/20/24 21:30 97.7 97.7 Physical Exam GENERAL EXAM: General: the patient is well developed and nourished. No acute distress. HEENT: Normocephalic, neck is supple, no carotid bruits. No mass RESPIRATORY: Normal respiratory effort with symmetrical lung expansion. Lungs clear to auscultation. CARDIOVASCULAR: Regular rate and rhythm with no murmurs. S1, S2. ABDOMEN: Soft, nontender, normal bowel sound NEUROLOGICAL: MENTAL STATUS: Awake and alert. Oriented to person, place, time and general circumstances. Able to give personal history SPEECH, LANGUAGE, HIGHER CORTICAL FUNCTION: no aphasia or dysathria. CRANIAL NERVES: #2: Intact visual altamirano to confrontation. The optic discs were sharp #3,4,6: Pupils are equal, round and reactive. EOMs full and conjugate. No nystagmus. #5: Facial sensation intact in all three divisions bilaterally. Mandibular strength intact. #7: Facial muscles symmetrical and strength intact. #8: Hearing grossly normal to voice. #9,10: Uvula and soft palate rise in the midline. Swallow and voice are normal. #11: Trapezius and sternomastoid strength intact bilaterally. #12: Tongue midline. No fasciculations or atrophy. SENSATION: Sensation to touch and pinprick is normal. MOTOR: Normal tone in the upper and lower extremity. Normal muscle bulk. No fasciculations. No abnormal movements or posturing. Muscle strength of the major groups in the upper extremities is 5/5. Muscle strength of the major groups in the lower extremities is 5/5. REFLEXES: Deep tendon reflexes are symmetrical. No pathological reflexes. CEREBELLAR/COORDINATION: Finger to nose is normal bilaterally. GAIT/STATION: deferred Labs/Diagnostic Data Labs Test 07/21/24 19:49 07/21/24 03:51 07/20/24 16:05 07/20/24 15:41 Range/Units Sodium Level 142 136-145 mmol/L Potassium Level 3.6 3.5-5.1 mmol/L Chloride Level 110 H 98-107 mmol/L Carbon Dioxide Level 26 20-31 mmol/L Anion Gap 6 5-15 Blood Urea Nitrogen < 5 L 9-23 mg/dL Creatinine 0.66 0.550-1.02 mg/dL Glomerular Filtration Rate Calc 117 >90 mL/min BUN/Creatinine Ratio 7.6 L 10.0-20.0 Serum Glucose 125 H 74-106 mg/dL Calcium Level 8.5 L 8.7-10.4 mg/dL Magnesium Level 2.0 1.6-2.6 mg/dL Total Bilirubin 0.5 0.2-1.0 mg/dL Aspartate Amino Transferase (AST) 12 L 13-40 U/L Alanine Aminotransferase (ALT) 13 7-40 U/L Alkaline Phosphatase 51 46-116 U/L Total Protein 6.1 5.7-8.2 g/dL Albumin 3.6 3.2-4.8 g/dL Parathyroid Hormone (Intact) 118.0 H 18.4-80.1 pg/mL White Blood Count 6.9 # 4.4-10.8 10^3/uL Red Blood Count 4.41 4.0-5.20 10^6/uL Hemoglobin 13.5 12.2-16.2 g/dL Hematocrit 41.2 # 36.0-46.0 % Mean Corpuscular Volume 93.6 80.0-100.0 fL Mean Corpuscular Hemoglobin 30.7 28.0-32.0 pg Mean Corpuscular Hemoglobin Concent 32.8 32.0-36.0 g/dL Red Cell Distribution Width 14.0 11.8-14.3 % Platelet Count 310 140-450 10^3/uL Mean Platelet Volume 8.1 6.9-10.8 fL Neutrophils (%) (Auto) 51.3 37.0-80.0 % Lymphocytes (%) (Auto) 35.5 10.0-50.0 % Monocytes (%) (Auto) 10.2 0.0-12.0 % Eosinophils (%) (Auto) 2.5 0.0-7.0 % Basophils (%) (Auto) 0.5 0.0-2.0 % Neutrophils # (Auto) 3.6 1.6-8.6 10 ^3/uL Lymphocytes # (Auto) 2.5 0.4-5.4 10 ^3/uL Monocytes # (Auto) 0.7 0-1.3 10 ^3/uL Eosinophils # (Auto) 0.2 0-0.8 10 ^3/uL Basophils # (Auto) 0 0-0.2 10 ^3/uL Nucleated Red Blood Cells 0.1 % Hemoglobin A1c 4.9 <5.7 % A1C Triglycerides Level 104 < 150 mg/dL Cholesterol Level 114 < 200 mg/dL LDL Cholesterol 67 < 100 mg/dL HDL Cholesterol 36 L 40-59 mg/dL Vitamin B12 Level 1106 H 211-911 pg/mL Vitamin D 25-Hydroxy 21.1 L 30.0-100 ng/mL Thyroid Stimulating Hormone (TSH) 1.55 0.55-4.78 uIU/mL Troponin I High Sensitivity 5 </=34 ng/L Urine Color Colorless Yellow Urine Clarity Clear Clear Urine pH 7.0 5.0-9.0 Urine Specific [place] 1.006 1.001-1.035 Urine Protein Negative Negative Urine Ketones Negative Negative Urine Blood 2+ H Negative /uL Urine Nitrite Negative Negative Urine Bilirubin Negative Negative Urine Urobilinogen Normal Negative mg/dL Urine Leukocyte Esterase Trace Negative /uL Urine RBC 2 0 - 4 /hpf Urine WBC 2 0 - 5 /hpf Urine Squamous Epithelial Cells Few <5 /hpf Urine Amorphous Crystals Few None Seen /hpf Urine Bacteria Few H None Seen /hpf Urine Glucose Normal Normal mg/dL Test 07/20/24 15:00 07/20/24 13:50 Range/Units Lipase 42 12-53 U/L B-Type Natriuretic Peptide 18.66 0-100 pg/mL Beta HCG, Quantitative 0.3 L 1.5-4.2 mIU/mL Assessment Syncopal event Seizure-like activity, at least the one in the ambulance and the one in the emergency room were nonepileptic or psychogenic ? Anxiety Plan/Recommendation Monitoring Supportive treatment Telemetry EEG MRI brain scan Ativan for seizure breakthrough Preventive seizure treatment is not indicated She has been advised not to drive on she cleared DMV report in the chart More recommendation per clinical course Prognosis: poor This medical document was created using an electronic medical record system with [employer] computerized dictation system. Although this document has been carefully reviewed, there may still be some phonetic and typographical errors. These areas are purely typographical due to imperfections of the software programs, and do not reflect any compromise in the patient's medical care. Plan discussed with: Patient, Other SHORTY CLIFFORD MD Jul 21, 2024 22:32
[2024-07-22] VITALS (10 sets, daily range): BP systolic 84–114; BP diastolic 43–68; PULSE 52–95; RESP 16–22; TEMP 97.7–98.1; O2SAT 96–100
[2024-07-22 07:57] LABS: Basophils # (auto) 0 10 ^3/uL (0-0.2); Basophils % (auto) 0.6 % (0.0-2.0); Eosinophils # (auto) 0.2 10 ^3/uL (0-0.8); Eosinophils % (auto) 3.6 % (0.0-7.0); Hematocrit 40.3 % (36.0-46.0); Hemoglobin 13.3 g/dL (12.2-16.2); Lymphocytes # (auto) 1.9 10 ^3/uL (0.4-5.4); Lymphocytes % (auto) 38.8 % (10.0-50.0); Mean Corpuscular Hemoglobin 30.6 pg (28.0-32.0); Mean Corpuscular Hgb Conc. 32.9 g/dL (32.0-36.0); Monocytes # (auto) 0.6 10 ^3/uL (0-1.3); Monocytes % (auto) 12.5 % (0.0-12.0); Neutrophils # (auto) 2.2 10 ^3/uL (1.6-8.6); Neutrophils % (auto) 44.5 % (37.0-80.0); Nucleated Red Blood Cells % 0.1 %; Platelet Count (auto) 313 10^3/uL (140-450); Red Blood Cells 4.34 10^6/uL (4.0-5.20); Red Cell Distribution Width 14.3 % (11.8-14.3); White Blood Cell 4.9 10^3/uL (4.4-10.8)
[2024-07-22 08:14] LABS: Alanine Aminotransferase 13 U/L (7-40); Albumin 3.4 g/dL (3.2-4.8); Alkaline Phosphatase 48 U/L (46-116); Anion Gap 7 (5-15); Aspartate Aminotransferase 12 U/L (13-40); Bilirubin, Total 0.5 mg/dL (0.2-1.0); Calcium 8.7 mg/dL (8.7-10.4); Carbon Dioxide 26 mmol/L (20-31); Chloride 111 mmol/L (98-107); Glucose 96 mg/dL (74-106); Magnesium 1.9 mg/dL (1.6-2.6); Potassium 4.1 mmol/L (3.5-5.1); Sodium 144 mmol/L (136-145); Total Protein 5.6 g/dL (5.7-8.2)
[2024-07-22 08:20] LABS: BUN/Creatinine Ratio 7.7 (10.0-20.0); Blood Urea Nitrogen < 5 mg/dL (9-23)
--- NOTE | 2024-07-22 08:39 | ECG ---
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
--- NOTE | 2024-07-22 09:03 | DVH ---
PROCEDURE: MRI BRAIN HEAD WO CONTRAST INDICATION: Seizure EXAM DATE: 07/22/2024 08:12 AM COMPARISON: None TECHNIQUE: MRI brain without intravenous contrast. FINDINGS: Diffusion weighted images of the brain demonstrate no evidence of acute infarction. There is no evid ence of intracranial hemorrhage, extra-axial collection, mass effect, midline shift, herniation or hy drocephalus. The ventricles, sulci, and cisterns appear otherwise age appropriate. There are several punctate T2 bright foci in the bilateral frontal white matter. There are no signal abnormali ties on the susceptibility weighted sequences. The major vascular flow voids are present. The v isualized paranasal sinuses and mastoid air cells are clear. The surrounding soft tissues and osseou s structures are otherwise unremarkable. IMPRESSION: 1. No evidence of acute infarction, intracranial hemorrhage, mass lesion or hydrocephalus. Several pu nctate T2 bright foci in the bilateral frontal white matter which are nonspecific. Otherwise normal b rain MRI. HS:Y
[2024-07-22 09:41] LABS: Hepatitis B Surface Antigen Negative (Negative)
[2024-07-22 10:02] LABS: Hepatitis C Antibody Negative (Negative)
--- NOTE | 2024-07-22 10:56 | DVHINCON2 ---
Date Seen: Jul 22, 2024 Referring Physician Reason for Consultation Sinus bradycardia, history of syncope, hypotension History of Present Illness 34-year-old female with no significant past medical history, who presented to the emergency department to after experiencing seizure-like episode and chest pressure earlier in this week. On Friday the patient experienced numbness and altered sensation throughout the left side of the body she describes numbness and paresthesias. On Friday she had an episode pressure sensation throughout the body after which just the chest pressure sensation remains. Later at work she experienced a seizure-like episodes characterized by shaking for about 1 minute followed by vomiting upon regarding consciousness. Paramedics were called and waiting transferred to the hospital she had a 2nd seizure-like episodes. She does not remember anything of these episodes. In the emergency department the patient had another seizure-like episode which resolved after administration of Ativan. She reports never having experienced similar episodes in the past. Chest x-rays, CT scan of the head, carotid Doppler and brain MRI were unremarkable, parathyroid hormone levels were elevated at 118. Neurology consultation assess the episode as nonepileptic, possibly psychogenic in origin. Recommended an EEG for further evaluation and advice Ativan for breakthrough seizures activity as needed. Long-term seizure prophylaxis is not indicated at this time. Family history: Father, epileptic seizures. Mother: Myocardial infarction, stroke, type 2 diabetes Past Medical History Type 1 obesity Seizure like activity Family History: Diabetes mellitus G8 MOTHER FH: heart attack G8 MOTHER FH: seizures G8 FATHER Hypertension G8 FATHER Hypotension G8 MOTHER Allergies: Coded Allergies: NO KNOWN ALLERGIES (Unverified , 07/20/24) Home Meds No Active Prescriptions or Reported Meds Current Medications Current Medications Medications (Trade) Dose Ordered Sig/Yemi Route PRN Reason Start Time Stop Time Status Last Admin Lorazepam (Ativan Inj) 1 mg Q5MINP PRN IV SEIZURES 07/21/24 16:45 Dextrose/Sodium Chloride 1,000 ml @ 125 mls/hr Q8H IV 07/21/24 17:00 07/22/24 09:11 Sodium Chloride 500 ml @ 500 mls/hr Q1H STAT IV 07/21/24 18:21 07/21/24 19:20 DC 07/21/24 18:21 Lorazepam (Ativan Inj) 1 mg ONCE PRN IV MRI 07/21/24 23:00 Review of Systems Constitutional: No: Fever, Chills, Sweats, Weakness, Malaise, Other Eyes: No: Pain, Vision change, Conjunctivae inflammation, Eyelid inflammation, Other, Redness ENT: No: Ear pain, Ear discharge, Nose pain, Nose discharge, Nose congestion, Mouth pain, Mouth swelling, Throat pain, Throat swelling, Other Respiratory: No Wheezing, Hemoptysis, Pleuritic Pain, Sputum, Wheezing, Other Cardiovascular: No: Chest Pain, Palpitations, Orthopnea, Paroxysmal Noc. Dyspnea, Edema, Lt Headedness, Other Gastrointestinal: No: Nausea, Vomiting, Abdominal Pain, Diarrhea, Constipation, Melena, Hematochezia, Other Musculoskeletal: No: other, neck pain, shoulder pain, arm pain, back pain, hand pain, leg pain, foot pain Neurological:; No: Weakness, Numbness, Incoordination, Change in speech, Confusion, Seizures Vital Signs Vital Signs Date Time Temp Pulse Resp B/P (MAP) Pulse Ox O2 Delivery O2 Flow Rate FiO2 07/22/24 09:00 97.7 63 17 97/46 (63) 99 97.7 07/22/24 08:28 Room Air* 0 21 Physical Exam Examination General Appearance: Alert, Oriented X3, Cooperative, No acute distress HEENT: EOMI Respiratory: Clear to auscultation, Normal air movement Cardiovascular: Regular rate, Normal S1, Normal S2 Abdominal: Normal bowel sounds Extremities: No cyanosis, No edema, Normal pulses, No tenderness/swelling Skin: No rashes, No breakdown Neuro: Normal gait, Normal speech, Strength at 5/5 X4 ext, Normal tone, Sensation intact, Cranial nerves 3-12 NL, Reflexes 2+ Psych/Mental Status: Mental status NL, Mood NL Labs/Diagnostic Data Labs Test 07/22/24 07:30 07/21/24 19:49 07/21/24 03:51 07/20/24 16:05 Range/Units White Blood Count 4.9 # 4.4-10.8 10^3/uL Red Blood Count 4.34 4.0-5.20 10^6/uL Hemoglobin 13.3 12.2-16.2 g/dL Hematocrit 40.3 36.0-46.0 % Mean Corpuscular Volume 93.0 80.0-100.0 fL Mean Corpuscular Hemoglobin 30.6 28.0-32.0 pg Mean Corpuscular Hemoglobin Concent 32.9 32.0-36.0 g/dL Red Cell Distribution Width 14.3 11.8-14.3 % Platelet Count 313 140-450 10^3/uL Mean Platelet Volume 8.0 6.9-10.8 fL Neutrophils (%) (Auto) 44.5 37.0-80.0 % Lymphocytes (%) (Auto) 38.8 10.0-50.0 % Monocytes (%) (Auto) 12.5 H 0.0-12.0 % Eosinophils (%) (Auto) 3.6 0.0-7.0 % Basophils (%) (Auto) 0.6 0.0-2.0 % Neutrophils # (Auto) 2.2 1.6-8.6 10 ^3/uL Lymphocytes # (Auto) 1.9 0.4-5.4 10 ^3/uL Monocytes # (Auto) 0.6 0-1.3 10 ^3/uL Eosinophils # (Auto) 0.2 0-0.8 10 ^3/uL Basophils # (Auto) 0 0-0.2 10 ^3/uL Nucleated Red Blood Cells 0.1 % Sodium Level 144 136-145 mmol/L Potassium Level 4.1 3.5-5.1 mmol/L Chloride Level 111 H 98-107 mmol/L Carbon Dioxide Level 26 20-31 mmol/L Anion Gap 7 5-15 Blood Urea Nitrogen < 5 L 9-23 mg/dL Creatinine 0.65 0.550-1.02 mg/dL Glomerular Filtration Rate Calc 118 >90 mL/min BUN/Creatinine Ratio 7.7 L 10.0-20.0 Serum Glucose 96 74-106 mg/dL Calcium Level 8.7 8.7-10.4 mg/dL Magnesium Level 1.9 1.6-2.6 mg/dL Total Bilirubin 0.5 0.2-1.0 mg/dL Aspartate Amino Transferase (AST) 12 L 13-40 U/L Alanine Aminotransferase (ALT) 13 7-40 U/L Alkaline Phosphatase 48 46-116 U/L Total Protein 5.6 L 5.7-8.2 g/dL Albumin 3.4 3.2-4.8 g/dL Parathyroid Hormone (Intact) 118.0 H 18.4-80.1 pg/mL Hemoglobin A1c 4.9 <5.7 % A1C Triglycerides Level 104 < 150 mg/dL Cholesterol Level 114 < 200 mg/dL LDL Cholesterol 67 < 100 mg/dL HDL Cholesterol 36 L 40-59 mg/dL Vitamin B12 Level 1106 H 211-911 pg/mL Vitamin D 25-Hydroxy 21.1 L 30.0-100 ng/mL Thyroid Stimulating Hormone (TSH) 1.55 0.55-4.78 uIU/mL Hepatitis B Surface Antigen Negative Negative Hepatitis C Antibody Negative Negative Troponin I High Sensitivity 5 </=34 ng/L Test 07/20/24 15:41 07/20/24 15:00 07/20/24 13:50 Range/Units Urine Color Colorless Yellow Urine Clarity Clear Clear Urine pH 7.0 5.0-9.0 Urine Specific [place] 1.006 1.001-1.035 Urine Protein Negative Negative Urine Ketones Negative Negative Urine Blood 2+ H Negative /uL Urine Nitrite Negative Negative Urine Bilirubin Negative Negative Urine Urobilinogen Normal Negative mg/dL Urine Leukocyte Esterase Trace Negative /uL Urine RBC 2 0 - 4 /hpf Urine WBC 2 0 - 5 /hpf Urine Squamous Epithelial Cells Few <5 /hpf Urine Amorphous Crystals Few None Seen /hpf Urine Bacteria Few H None Seen /hpf Urine Glucose Normal Normal mg/dL Lipase 42 12-53 U/L B-Type Natriuretic Peptide 18.66 0-100 pg/mL Beta HCG, Quantitative 0.3 L 1.5-4.2 mIU/mL Assessment Syncope likely due to seizure activity History of hypotension Sinus bradycardia Plan/Recommendation Cardiolite stress test was uneventful, Kaden protocol with optimal chronotropic response. Echocardiogram ejection fraction 55% EKG shows sinus bradycardia Troponin were negative Continue management per hospitalist and other specialist. Patient is asymptomatic, from cardiology standpoint there is no further workup indicated at this time, we are signing off . Thank you for allowing us participate in this case Case discussed with Dr. Funk Critical care, time spent: 48 minutes Plan discussed with: Patient Date of Service: Jul 22, 2024 Billing Provider: KOTA FUNK MD Cardiology Common Codes: [id number] INP/OBS CARE (High) MITA MORA RESIDENT Jul 22, 2024 10:56
--- NOTE | 2024-07-22 15:04 | DVHCARD ---
Cardiology Stress Test Workshe Treadmill Stress Test [place] Referring MD: MD Max Protocol: Kaden (with cardiolite) Reason for referral: Other (Chest pain and chronotropic response evaluation) Target heart Rate:@85%: 157 Percent MPHR: 185 METS: 10.10 Resting Heart rate: 63 Resting Blood Pressure: 114/68 Exercise Heart Rate: 187 Exercise Blood Pressure: 213/68 Reason for Termination of Test: Completion of Protocol Baseline EKG: NSR Stress EKG: Sinus tachycardia Functional Capacity: Good Normal Heart Rate Response: Adequate Blood Pressure Response: Hypertensive Clinical response: Non-ischemic Arrhythmia?: No Cardiolite Injected?: No ST-T Changes: Non/Minimal Probability of Inducible Ische: Low Comments: Uneventful Kaden protocol with optimal chronotropic response. Date of Service: Jul 22, 2024 Billing Provider: KOTA GILES MD Cardiology Common Codes: PROCEDURE ONLY Treadmill w/o Cardiolite: [id number], INTERP, RPT KRISH CHA GETTER FILLER Jul 22, 2024 15:04
--- NOTE | 2024-07-22 22:07 | DVHPN2 ---
Progress Note - Dictate Date Seen: Jul 22, 2024 Medical Necessity Reason Pt with a Central, PICC or Fol: No Subjective MsTiera Tang is a 34 years old right-handed female denies major medical history, she came to the hospital on 07/20/2024 with a chief complaint of seizure activity. I have seen and examined the patient, I have talked to her nurse, she was doing better, she is alert and fully oriented, no new complaints Urinalysis, 07/20/2024: WBC: 2, urine leukocyte esterase: Trace CBC, 07/21/2024: Unremarkable CMP, 07/21/2024: Unremarkable HGB A1c, 07/21/2020 4:4.9 TG/HDL/LDL/HDL, 06/2024: 104/113/67/36 Vitamin B12, 07/21/2024: 1106 Carotid Doppler, 07/21/2024: No hemodynamically significant stenosis noted in the right carotid system. No hemodynamically significant stenosis noted in the left carotid system. Elevated velocities within the left ICA from tortuosity with mild atherosclerotic plaque noted on the grayscale CT head, 07/21/2024: No acute intracranial process MRI head 07/22/2024: No evidence of acute infarction, intracranial hemorrhage, mass lesion or hydrocephalus. Several punctate T2 bright foci in the bilateral frontal white matter which are nonspecific. Otherwise normal brain MRI. vital signs Vital Sign Date Time Temp Pulse Resp B/P (MAP) Pulse Ox O2 Delivery O2 Flow Rate FiO2 07/22/24 21:00 98.1 65 22 99/55 (70) 99 98.1 07/22/24 08:28 Room Air* 0 21 Total Intake and Output 07/21/24 07/21/24 07/22/24 15:00 23:00 07:00 Intake Total 1600 ml 500 ml Output Total 300 ml Balance 1600 ml 200 ml medications Current Medications Medications Dose Ordered Sig/Yemi Route Start Time Stop Time Status Last Admin Dose Admin Acetaminophen 325 mg Q4HP PRN PO 07/20/24 21:45 Acetaminophen/ Hydrocodone Bitart 1 tab Q4HP PRN PO 07/20/24 21:45 Ondansetron HCl 4 mg Q4HP PRN IV 07/20/24 21:45 Nitroglycerin 0.4 mg Q5MINP PRN SL 07/20/24 21:45 Morphine Sulfate 2 mg Q30M PRN IV 07/20/24 21:45 Ergocalciferol 50,000 unit Q7D PO 07/21/24 05:45 07/21/24 06:28 50,000 UNIT Lorazepam 1 mg Q5MINP PRN IV 07/21/24 16:45 Lorazepam 1 mg ONCE PRN IV 07/21/24 23:00 objective General: the patient is well developed and nourished. No acute distress. MENTAL STATUS: Subjective SPEECH, LANGUAGE, HIGHER CORTICAL FUNCTION: no aphasia or dysathria. CRANIAL NERVES: Pupils are equal, round and reactive. EOMs full and conjugate. No nystagmus. Facial sensation intact in all three divisions bilaterally. Mandibular strength intact. Facial muscles symmetrical and strength intact. SENSATION: Sensation to touch and pinprick is normal. MOTOR: Normal tone in the upper and lower extremity. Normal muscle bulk. No fasciculations. No abnormal movements or posturing. Muscle strength of the major groups in the extremities is 5/5. REFLEXES: Deep tendon reflexes are symmetrical. No pathological reflexes. CEREBELLAR/COORDINATION: Finger to nose is normal bilaterally. GAIT/STATION: deferred laboratory and microbiology Laboratory Tests 07/22/24 07:30 Test 07/22/24 07:30 Range/Units Serum Glucose 96 74-106 mg/dL Problem List Syncopal event Seizure-like activity, at least the one in the ambulance and the one in the emergency room were nonepileptic or psychogenic ? Anxiety Assessment/Plan Monitoring Supportive treatment Telemetry EEG Ativan for seizure breakthrough Preventive seizure treatment is not indicated She has been advised not to drive on she cleared DMV report in the chart More recommendation per clinical course This medical document was created using an electronic medical record system with [employer] dictation system. Although this document has been carefully reviewed, there may still be some phonetic and typographical errors. These areas are purely typographical due to imperfections of the software programs, and do not reflect any compromise in the patient's medical care Prognosis poor Plan discussed with: Patient, Other SHORTY CLIFFORD MD Jul 22, 2024 22:07
--- NOTE | 2024-07-22 22:40 | DVHEEG2 ---
Neurology EEG Procedural Note Procedural Note EXAM DATE: 07/22/2024 REFERRING DOCTOR: Dr. Acevedo TECHNIQUE: Eighteen channels of EEG, 2 channels of EOG, and 1 channel of EKG were recorded using the International 10/20 system. CLINICAL DATA: The patient was referred for an EEG evaluation for the evidence of seizure disorder. MEDICATIONS: See the chart BACKGROUND ACTIVITY: While the patient was awake, the background activity consisted of well regulated 10-11 Hz rhythmic waveforms, symmetrically distributed over both posterior quadrants and was reactive to eye opening. ACTIVATION: Hyperventilation: Not done Photic Stimulation: Not done Sleep: Not seen IMPRESSION: This is a normal EEG. No focal, lateralized, or epileptiform features are noted. If clinically indicated to rule out a seizure disorder, recommend repeat EEG with sleep deprivation. The EKG channel showed a regular heart rate of 48/min[place] [address] SHORTY CLIFFORD MD Jul 22, 2024 22:40
[2024-07-23] VITALS (7 sets, daily range): BP systolic 93–114; BP diastolic 38–48; PULSE 58–82; RESP 16–22; TEMP 36.7; O2SAT 98–100
--- NOTE | 2024-07-23 06:14 | DVHPNRES ---
Progress Note Date Seen: Jul 22, 2024 Resident Creating Document: HAYLIE DESAI RESIDENT Medical Necessity Reason Pt with a Central, PICC or Fol: No Subjective Review of Systems This is a 34 years old female with no significant past medical history presented to the ED via EMS with a complaint of dizziness and fainting. Patient reports that after she had donated plasma earlier today, she began to experience numbness in the lips , heaviness in the lower parts of the body , blackout and lost consciousness. As per patient's patient's colleagues weakness patient having seizure 2 times. This is the 3rd time she donated plasma and she used to have numbness in the lips after donation and it is the 1st time she have this kind of symptoms. She also mentioned nausea and vomiting but denies any incontinence or confusion after regained consciousness. EMS relays that on scene the patient was hypotensive. Patient denies any SOB, dizziness, fever, chills, headache, or abdominal pain. Initial lab workup revealed mild hypokalemia, potassium 3.4, EKG sinus rhythm, later on patient developed sinus bradycardia at times, sent by acute cardiopulmonary process noted, CT head negative for acute intracranial hemorrhage, infarction, tumor. Carotid Doppler revealed-No hemodynamically significant stenosis noted in the right or left carotid system. PMH-none PSH- none Allergy- NKDA Personal History/ Social History- 69, denies alcoholism/smoking/drug abuse. Patient was seen today at the bedside. Patient reports feeling better. Cardiovascular- deny acute chest pain or shortness of breath or cough or palpitation Respiratory- denies cough or short of breath or wheezing Gastrointestinal- denies any rectal bleeding, nausea or vomiting Musculoskeletal-denies acute joint swelling or tenderness or redness Neurological- denies acute dysarthria, dysphagia, change in vision Psychiatry- denies depression or SI or HI Skin- denies acute rash or purpura Patient was seen today for clinical evaluation. Labs and chart reviewed. Reports feeling better today. No seizure activity noted today. Patient is sinus rhythm. Patient was seen by Cardiology and Neurology. Recommendation reviewed and appreciated. EEG was done today, report not available yet. Echo 2D revealed LVEF 55%.Cardiolite stress test was uneventful, Kaden protocol with optimal chronotropic response. Plan is to discharge patient home tomorrow if EEG looks okay. Resume regular diet. Discontinue IV fluid. Objective vital signs Vital Sign Date Time Temp Pulse Resp B/P (MAP) Pulse Ox O2 Delivery O2 Flow Rate FiO2 07/23/24 05:00 98.0 58 22 99/45 (63) 99 98.0 07/22/24 20:00 Room Air* 0 21 Total Intake and Output 07/22/24 07/22/24 07/23/24 15:00 23:00 07:00 Intake Total 1200 ml 495 ml Output Total 0 ml Balance 1200 ml 495 ml medications Current Medications Medications Dose Ordered Sig/Yemi Route Start Time Stop Time Status Last Admin Dose Admin Acetaminophen 325 mg Q4HP PRN PO 07/20/24 21:45 Acetaminophen/ Hydrocodone Bitart 1 tab Q4HP PRN PO 07/20/24 21:45 Ondansetron HCl 4 mg Q4HP PRN IV 07/20/24 21:45 Nitroglycerin 0.4 mg Q5MINP PRN SL 07/20/24 21:45 Morphine Sulfate 2 mg Q30M PRN IV 07/20/24 21:45 Ergocalciferol 50,000 unit Q7D PO 07/21/24 05:45 07/21/24 06:28 50,000 UNIT Lorazepam 1 mg Q5MINP PRN IV 07/21/24 16:45 Lorazepam 1 mg ONCE PRN IV 07/21/24 23:00 Examination General examination-, alert, oriented, cooperative HEENT- PEERLA, no acute nasal discharge Cardiovascular- S1-S2 audible, rate and rhythm regular, no murmur Respiratory- CTAB, no wheeze or rhonchi Gastrointestinal-nontender, bowel sound+. Nondistended Musculoskeletal-no acute joint swelling or tenderness or redness# Lower extremity- no leg edema Neurological- cranial nerves intact, no acute dysarthria or dysphagia Psychiatry- denies depression or SI or HI Skin- no acute rash or purpura laboratory and microbiology Laboratory Tests 07/22/24 07:30 Test 07/22/24 07:30 Range/Units Serum Glucose 96 74-106 mg/dL Problem List/Assessment/Plan Problem List/Assessment/Plan Acute syncopal episode likely due to seizure/vasovagal syncope/hypotension/orthostatic hypotension/cardiac arrhythmia -telemetry patient on sinus rhythm -Cardiolite stress test was uneventful, Kaden protocol with optimal chronotropic response. -CXR- no acute cardiopulmonary process noted, -CT head negative for acute intracranial hemorrhage, infarction -MRI of the brain-No evidence of acute infarction, intracranial hemorrhage, mass lesion or hydrocephalus. Several punctate T2 bright foci in the bilateral frontal white matter which are nonspecific -Carotid Doppler revealed-No hemodynamically significant stenosis noted in the right or left carotid system. -echo 2D revealed LVEF 55%, negative for aortic stenosis/valvular abnormality -cardiology and Neurology recommendation reviewed and appreciated -EEG report pending -continue telemetry -on seizure precaution -lorazepam p.r.n. as prescribed #Hypotension likely due to post plasma donation -continue IV fluid as prescribed -monitor BP #Sinus bradycardia under evaluation -telemetry patient on sinus rhythm -Cardiolite stress test was uneventful, Kaden protocol with optimal chronotropic response. -CXR- no acute cardiopulmonary process noted, -CT head negative for acute intracranial hemorrhage, infarction -MRI of the brain-No evidence of acute infarction, intracranial hemorrhage, mass lesion or hydrocephalus. Several punctate T2 bright foci in the bilateral frontal white matter which are nonspecific -Carotid Doppler revealed-No hemodynamically significant stenosis noted in the right or left carotid system. -echo 2D revealed LVEF 55%, negative for aortic stenosis/valvular abnormality -cardiology recommendation reviewed and appreciated -continue telemetry -on seizure precaution -lorazepam p.r.n. as prescribed # mild hypokalemia-replenished -monitor BMP # vitamin-D deficiency -continue with ergo-cholecalciferol as prescribed -ordered parathyroid hormone level Goals of care/advance care planning; FULL CODE; discussed with the patient PUD prophylaxis: Not needed DVT prophylaxis: And ambulating and also having seizure Plan discussed with Dr. Rossi,,, nursing staff, patient Total time spent on patient evaluation, chart review, assessment and plan, discussion discussion >30 minutes Plan discussed with: Patient Plan discussed with: Patient, Other (RN) My Orders My Orders Orders - HAYLIE DESAI Procedure Category Date Status Time Brain Head Wo Contrast MRI 07/22/24 Resulted 08:14 Stress Test Routine NM 07/22/24 Taken 15:02 Regular Diet DIET 07/22/24 Transmitted Dinner Complete Blood Count LAB 07/23/24 Logged 04:00 Basic Metabolic Panel LAB 07/23/24 Logged 04:00 Date of Service: Jul 22, 2024 Billing Provider: YOHANA ROSSI MD Common Visit Codes: [id number] INP/OBS CARE(HIGH) HAYLIE DESAI Jul 23, 2024 06:14 YOHANA ROSSI MD Jul 23, 2024 20:17
[2024-07-23 08:03] LABS: Basophils # (auto) 0 10 ^3/uL (0-0.2); Basophils % (auto) 0.8 % (0.0-2.0); Eosinophils # (auto) 0.2 10 ^3/uL (0-0.8); Eosinophils % (auto) 4.5 % (0.0-7.0); Hematocrit 40.5 % (36.0-46.0); Hemoglobin 13.4 g/dL (12.2-16.2); Lymphocytes # (auto) 2.1 10 ^3/uL (0.4-5.4); Mean Corpuscular Hemoglobin 30.6 pg (28.0-32.0); Mean Corpuscular Hgb Conc. 33.1 g/dL (32.0-36.0); Mean Corpuscular Volume 92.6 fL (80.0-100.0); Monocytes # (auto) 0.6 10 ^3/uL (0-1.3); Monocytes % (auto) 12.6 % (0.0-12.0); Neutrophils # (auto) 1.9 10 ^3/uL (1.6-8.6); Neutrophils % (auto) 39.1 % (37.0-80.0); Nucleated Red Blood Cells % 0.2 %; Platelet Count (auto) 294 10^3/uL (140-450); Red Blood Cells 4.37 10^6/uL (4.0-5.20); Red Cell Distribution Width 13.9 % (11.8-14.3); White Blood Cell 4.9 10^3/uL (4.4-10.8)
[2024-07-23 08:09] LABS: Anion Gap 7 (5-15); Carbon Dioxide 27 mmol/L (20-31); Chloride 108 mmol/L (98-107); Potassium 3.6 mmol/L (3.5-5.1); Sodium 142 mmol/L (136-145)
[2024-07-23 08:11] LABS: Calcium 8.7 mg/dL (8.7-10.4)
[2024-07-23 08:16] LABS: Glucose 85 mg/dL (74-106)
[2024-07-23 08:17] LABS: BUN/Creatinine Ratio 7.6 (10.0-20.0); Blood Urea Nitrogen < 5 mg/dL (9-23)
--- NOTE | 2024-07-23 10:59 | DVHDSRES ---
Discharge Summary Date of Admission Resident Creating Document: HAYLIE DESAI RESIDENT Jul 20, 2024 at 21:31 Date of Discharge: Jul 23, 2024 Admitting Diagnosis Syncope/dizziness Labs/Diagnostic Data: Laboratory Results Test 07/23/24 06:52 07/22/24 07:30 07/21/24 19:49 07/21/24 03:51 White Blood Count 4.9 10^3/uL (4.4-10.8) Red Blood Count 4.37 10^6/uL (4.0-5.20) Hemoglobin 13.4 g/dL (12.2-16.2) Hematocrit 40.5 % (36.0-46.0) Mean Corpuscular Volume 92.6 fL (80.0-100.0) Mean Corpuscular Hemoglobin 30.6 pg (28.0-32.0) Mean Corpuscular Hemoglobin Concent 33.1 g/dL (32.0-36.0) Red Cell Distribution Width 13.9 % (11.8-14.3) Platelet Count 294 10^3/uL (140-450) Mean Platelet Volume 8.4 fL (6.9-10.8) Neutrophils (%) (Auto) 39.1 % (37.0-80.0) Lymphocytes (%) (Auto) 43.0 % (10.0-50.0) Monocytes (%) (Auto) 12.6 % (0.0-12.0) Eosinophils (%) (Auto) 4.5 % (0.0-7.0) Basophils (%) (Auto) 0.8 % (0.0-2.0) Neutrophils # (Auto) 1.9 10 ^3/uL (1.6-8.6) Lymphocytes # (Auto) 2.1 10 ^3/uL (0.4-5.4) Monocytes # (Auto) 0.6 10 ^3/uL (0-1.3) Eosinophils # (Auto) 0.2 10 ^3/uL (0-0.8) Basophils # (Auto) 0 10 ^3/uL (0-0.2) Nucleated Red Blood Cells 0.2 % Sodium Level 142 mmol/L (136-145) Potassium Level 3.6 mmol/L (3.5-5.1) Chloride Level 108 mmol/L (98-107) Carbon Dioxide Level 27 mmol/L (20-31) Anion Gap 7 (5-15) Blood Urea Nitrogen < 5 mg/dL (9-23) Creatinine 0.66 mg/dL (0.550-1.02) Glomerular Filtration Rate Calc 117 mL/min (>90) BUN/Creatinine Ratio 7.6 (10.0-20.0) Serum Glucose 85 mg/dL (74-106) Calcium Level 8.7 mg/dL (8.7-10.4) Magnesium Level 1.9 mg/dL (1.6-2.6) Total Bilirubin 0.5 mg/dL (0.2-1.0) Aspartate Amino Transferase (AST) 12 U/L (13-40) Alanine Aminotransferase (ALT) 13 U/L (7-40) Alkaline Phosphatase 48 U/L (46-116) Total Protein 5.6 g/dL (5.7-8.2) Albumin 3.4 g/dL (3.2-4.8) Parathyroid Hormone (Intact) 118.0 pg/mL (18.4-80.1) Hemoglobin A1c 4.9 % A1C (<5.7) Triglycerides Level 104 mg/dL (< 150) Cholesterol Level 114 mg/dL (< 200) LDL Cholesterol 67 mg/dL (< 100) HDL Cholesterol 36 mg/dL (40-59) Vitamin B12 Level 1106 pg/mL (211-911) Vitamin D 25-Hydroxy 21.1 ng/mL (30.0-100) Thyroid Stimulating Hormone (TSH) 1.55 uIU/mL (0.55-4.78) Hepatitis B Surface Antigen Negative (Negative) Hepatitis C Antibody Negative (Negative) Test 07/20/24 16:05 07/20/24 15:41 07/20/24 15:00 07/20/24 13:50 Troponin I High Sensitivity 5 ng/L (</=34) Urine Color Colorless (Yellow) Urine Clarity Clear (Clear) Urine pH 7.0 (5.0-9.0) Urine Specific [place] 1.006 (1.001-1.035) Urine Protein Negative (Negative) Urine Ketones Negative (Negative) Urine Blood 2+ /uL (Negative) Urine Nitrite Negative (Negative) Urine Bilirubin Negative (Negative) Urine Urobilinogen Normal mg/dL (Negative) Urine Leukocyte Esterase Trace /uL (Negative) Urine RBC 2 /hpf (0 - 4) Urine WBC 2 /hpf (0 - 5) Urine Squamous Epithelial Cells Few /hpf (<5) Urine Amorphous Crystals Few /hpf (None Seen) Urine Bacteria Few /hpf (None Seen) Urine Glucose Normal mg/dL (Normal) Lipase 42 U/L (12-53) B-Type Natriuretic Peptide 18.66 pg/mL (0-100) Beta HCG, Quantitative 0.3 mIU/mL (1.5-4.2) Other Laboratory Tests 07/23/24 06:52 Brief Hx & Hospital Course: This is a 34 years old female with no significant past medical history presented to the ED via EMS with a complaint of dizziness and fainting. Patient reports that after she had donated plasma earlier today, she began to experience numbness in the lips , heaviness in the lower parts of the body , blackout and lost consciousness. As per patient's patient's colleagues weakness patient having seizure 2 times. This is the 3rd time she donated plasma and she used to have numbness in the lips after donation and it is the 1st time she have this kind of symptoms. She also mentioned nausea and vomiting but denies any incontinence or confusion after regained consciousness. EMS relays that on scene the patient was hypotensive. Patient denies any SOB, dizziness, fever, chills, headache, or abdominal pain. Initial lab workup revealed mild hypokalemia, potassium 3.4, EKG sinus rhythm, later on patient developed sinus bradycardia at times, sent by acute cardiopulmonary process noted, CT head negative for acute intracranial hemorrhage, infarction, tumor. Carotid Doppler revealed-No hemodynamically significant stenosis noted in the right or left carotid system. MRI of the brain reveal- No evidence of acute infarction, intracranial hemorrhage, mass lesion or hydrocephalus. Several punctate T2 bright foci in the bilateral frontal white matter which are nonspecific. Otherwise normal brain MRI.. EEG revealed- This is a normal EEG. No focal, lateralized, or epileptiform features are noted. If clinically indicated to rule out a seizure disorder, recommend repeat EEG with sleep deprivation. No typical seizure activity was noted during hospitalization. 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 Patient's sinus bradycardia improved. Patient's symptoms clinically improved. Patient was discharged in hemodynamically stable condition. Patient was advised to follow up with the PCP in 1 week and also to follow up with the Neurology. PMH-none PSH- none Allergy- NKDA Personal History/ Social History- 69, denies alcoholism/smoking/drug abuse. Patient was seen today at the bedside. Patient reports feeling better. Cardiovascular- deny acute chest pain or shortness of breath or cough or palpitation Respiratory- denies cough or short of breath or wheezing Gastrointestinal- denies any rectal bleeding, nausea or vomiting Musculoskeletal-denies acute joint swelling or tenderness or redness Neurological- denies acute dysarthria, dysphagia, change in vision Psychiatry- denies depression or SI or HI Skin- denies acute rash or purpura General examination-, alert, oriented, cooperative HEENT- PEERLA, no acute nasal discharge Cardiovascular- S1-S2 audible, rate and rhythm regular, no murmur Respiratory- CTAB, no wheeze or rhonchi Gastrointestinal-nontender, bowel sound+. Nondistended Musculoskeletal-no acute joint swelling or tenderness or redness# Lower extremity- no leg edema Neurological- cranial nerves intact, no acute dysarthria or dysphagia Psychiatry- denies depression or SI or HI Skin- no acute rash or purpura Condition at Discharge: Stable Final Diagnosis/Problems List Dizziness/syncope likely due to orthostatic hypotension/vasovagal syncope, seizure ruled out Hypotension likely due to post plasma donation Vitamin-D deficiency Discharge Disposition: Home Discharge Instruct/Medications Diet: Regular Activity: No Restrictions, As Tolerated Follow Up/Referral: Please follow up with the PCP and Neurology in 1 week Discharge Statement: "Patient was advised to return to the ER or call 911 if any headaches, dizziness, shortness of breath, chest pain, abdominal pain, bleeding, fevers, or worsening of medical condition. Patient was counseled about treatment plan, medications, possible side effects, patientverbalized understanding. All questions were answered to the best of my ability. This discharge took greater then 30 minutes in planning, reviewing documentation, counseling the patient, and discussing with other team members." ASSESSMENT ASSESSMENT Assessment Dizziness Date of Service: Jul 23, 2024 Billing Provider: YOHANA ENG MD Common Visit Codes: 93202-WYF/OBS DISCH DAY >30min HAYLIE DESAI RESIDENT Jul 23, 2024 10:59 YOHANA ENG MD Jul 23, 2024 20:17
== END 2024-07-23 14:00 | disposition home or self-care (01) | DRG 204 ==
LOC: EDBD 13:35 → ER 13:35 → TELE 21:31 → TELE-WESTW 07-21 16:13
PROVIDERS: ADMIT Internal Medicine Geriatric Medicine; ATTEND Internal Medicine Geriatric Medicine
DX: I95.1 Orthostatic hypotension (principal); E55.9 Vitamin D deficiency, unspecified; E87.6 Hypokalemia; Z82.0 Family history of epilepsy and other diseases of the nervous system; Z82.3 Family history of stroke; Z82.49 Family history of ischemic heart disease and other diseases of the circulatory system; Z83.3 Family history of diabetes mellitus; Z79.899 Other long term (current) drug therapy
CPT/HCPCS: 36415; 70450; 70551; 71045; 80048; 80053; 80061; 81001; 82306; 82607; 83036; 83690; 83735; 83880; 83970; 84443; 84484; 84702; 85025; 86803; 87340; 93005; 93017; 93306; 93886; 95819; 99291; G0378